=== PATIENT | female | born 2000 | race African-American/Black ===

== ENCOUNTER 2020-11-08 05:30 | Emergency (ER) | payer OTHER ==
[~2020-11-08] VITALS: Ht 157.5 cm; Wt 59.0 kg
[2020-11-08 06:15] VITALS: BP 116/64
[2020-11-08] MEDS ORDERED: LIDOCAINE HCL/PF 1% 10 MG/ML 5ML VIAL INFIL ONE (06:30)
[2020-11-08] MEDS ORDERED: TOPUD PO (07:36)
== END 2020-11-08 08:05 | disposition home or self-care (01) ==
LOC: ER 05:30
DX: S00.511A Abrasion of lip, initial encounter (principal); V49.59XA Passenger injured in collision with other motor vehicles in traffic accident, initial encounter; Y93.89 Activity, other specified; Y92.488 Other paved roadways as the place of occurrence of the external cause
CPT/HCPCS: 99282; J3490